=== PATIENT | female | born 1985 | race Two or more races ===

== ENCOUNTER 2025-02-12 11:58 | Emergency (ER) | payer MEDICAID, OTHER ==
[~2025-02-12] VITALS: Ht 167.6 cm; Wt 123.0 kg
--- NOTE | 2025-02-12 12:19 | ED.PDOC ---
GI ASSESSMENT HPI Comments This is a 39 year old female presenting to the ED with chief complaint of abdominal pain. Patient reports that she has been experiencing right suprapubic abdominal pain with associated chills and nausea worsening over the past 2 weeks. Patient notes her LMP was 3 months ago, but her menses is usually irregular. Patient denies any vomiting, diarrhea, chest pain, dysuria, hematuria, flank pain, or headache. Chief Complaint: Abdominal Pain Time Seen by MD: 12:16 Primary Care Provider: BUBBA Moon Notes: Nurses Notes, Medications, Allergies Allergies: Coded Allergies: NO KNOWN ALLERGIES (Unverified , 10/06/15) Home Meds Active Scripts Omeprazole (Gnp Omeprazole) 20 Mg Tab, 1 TAB PO BID for 15 Days, #30 TAB 1 Refill Prov:WESLEY GARY MD 02/12/25 Metoclopramide Hcl (Reglan) 10 Mg Tab, 10 MG PO BID for 10 Days, #20 TAB Prov:WESLEY GARY MD 02/12/25 Information Source: Patient Mode of Arrival: Ambulatory Timing: Days Duration: Since onset Prehospital treatment: None Quality: Sharp Vomitus: None Stool: Normal Severity: Moderate Recent: None Recent Hx of: None Pain Location: Suprapubic Modifying Factors: Nothing Associated sign and symptoms: Nausea, Abdominal Pain Past Medical History PAST MEDICAL HISTORY: Denies Surgical History: Denies all surgeries STAMP MAKER History: No Pertinent STAMP MAKER History Family History Family History: Reviewed,noncontributory to illness Social History Smoker: Non-Smoker Alcohol: Denies ETOH Use Drugs: Denies Drug Use Lives In: Home Constitutional: reports: chills; denies: diaphoresis, fatigue, fever, malaise, sweats, weakness, others EENTM: denies: blurred vision, double vision, ear bleeding, ear discharge, ear drainage, ear pain, ear ringing, eye pain, eye redness, hearing loss, mouth pain, mouth swelling, nasal discharge, nose bleeding, nose congestion, nose pain, photophobia, tearing, throat pain, throat swelling, voice changes, others Respiratory: denies: cough, hemoptysis, orthopnea, SOB at rest, shortness of breath, SOB with excertion, stridor, wheezing, others Cardiovascular: denies: chest pain, dizzy spells, diaphoresis, Dyspnea on exertion, edema, irregular heart beat, left arm pain, lightheadedness, palpitations, PND, syncope, others Gastrointestinal: reports: abdominal pain, nausea; denies: abdomen distended, blood streaked bowels, constipated, diarrhea, dysphagia, difficulty swallowing, hematemesis, melena, poor appetite, poor fluid intake, rectal bleeding, rectal pain, vomiting, others Genitourinary: denies: abnormal vagina bleeding, burning, dyspareunia, dysuria, flank pain, frequency, hematuria, incontinence, pain, , vagina discharge, urgency, others Neurological: denies: dizziness, fainting, headache, left sided numbness, left sided weakness, numbness, paresthesia, pre-existing deficit, right sided numbness, right sided weakness, seizure, speech problems, tingling, tremors, weakness, others Musculoskeletal: denies: back pain, gout, joint pain, joint swelling, muscle pain, muscle stiffness, neck pain, others Integumetry: denies: bruises, change in color, change in hair/nails, dryness, laceration, lesions, lumps, rash, wounds, others Allergic/Immunocompromised: denies: Difficulty Healing, Frequent Infections, Hives, Itching, others Hematologic/Lymphatic: denies: anemia, blood clots, easy bleeding, easy bruising, swollen glands, others Endocrine: denies: excessive hunger, excessive sweating, excessive thirst, excessive urination, flushing, intolerance to cold, intolerance to heat, unexplained weight gain, unexplained weight loss, others Psychiatric: denies: anxiety, bipolar disorder, depression, hopeless, panic disorder, schizophrenia, sleepless, suicidal, others All Other Systems: Reviewed and Negative Physical Exam General Appearance: Moderate Distress, Obese HEENT: Normal ENT Inspection, PERRL/EOMI Neck: Full Range of Motion, Non-Tender, Normal, Normal Inspection Respiratory: Chest Non-Tender, Lungs Clear, No Accessory Muscle Use, No Respiratory Distress, Normal Breath Sounds Cardiovascular: No Edema, No JVD, No Murmur, No Gallop, Normal Peripheral Pulses, Regular Rate/Rhythm Breast Exam: Deferred Gastrointestinal: Diffuse, LLQ, No Organomegaly, No Pulsatile Mass, Normal Bowel Sounds, RLQ, Soft, Suprapubic, Tenderness Genitalia: Deferred Pelvic: Deferred Rectal: Deferred Extremities: No calf tenderness, Normal capillary refill, Normal inspection, Normal range of motion, Non-tender, No pedal edema Neurologic: Alert, supervisor particleboard II-XII nml as Tested, No Motor Deficits, Normal Affect, Normal Mood, No Sensory Deficits Cerebellar Function: Normal Reflexes: Normal Skin: Dry, Normal Color, Warm Peripheral Pulses: 1+ carotid (R), 1+ carotid (L) Lymphatic: No Adenopathy Was a procedure done? Was a procedure done?: No GI differential Dx Differential Diagnosis: Appendicitis, Cholecystitis, Constipation, Diverticular disease, Ectopic , Gastritis/PUD, Gastroenteritis, Hernia, Inflammatory BD, Pancreatitis, UTI, Dehydration, Diabetes/ DKA, Drug toxicity, Electrolyte Imbalance, Food Poisoning, Hypovolemia, Renal Failure, Anemia, Kidney Stone X-Ray, Labs, Meds, VS Vital Signs Date Time Temp Pulse Resp B/P (MAP) Pulse Ox O2 Delivery O2 Flow Rate FiO2 02/12/25 17:46 98.2 96 12 132/78 (96) 97 98.2 02/12/25 14:52 88 16 128/73 02/12/25 14:42 97.9 88 12 128/73 (91) 96 97.9 02/12/25 13:56 81 16 161/100 02/12/25 11:59 97.8 89 15 161/100 98 97.8 Lab Test 02/12/25 12:33 02/12/25 12:13 Range/Units White Blood Count 8.4 4.4-10.8 10^3/uL Red Blood Count 4.81 4.0-5.20 10^6/uL Hemoglobin 13.8 12.2-16.2 g/dL Hematocrit 41.4 36.0-46.0 % Mean Corpuscular Volume 86.2 80.0-100.0 fL Mean Corpuscular Hemoglobin 28.7 28.0-32.0 pg Mean Corpuscular Hemoglobin Concent 33.3 32.0-36.0 g/dL Red Cell Distribution Width 12.7 11.8-14.3 % Platelet Count 318 140-450 10^3/uL Mean Platelet Volume 7.5 6.9-10.8 fL Neutrophils (%) (Auto) 63.8 37.0-80.0 % Lymphocytes (%) (Auto) 27.6 10.0-50.0 % Monocytes (%) (Auto) 5.9 0.0-12.0 % Eosinophils (%) (Auto) 2.3 0.0-7.0 % Basophils (%) (Auto) 0.4 0.0-2.0 % Neutrophils # (Auto) 5.3 1.6-8.6 10 ^3/uL Lymphocytes # (Auto) 2.3 0.4-5.4 10 ^3/uL Monocytes # (Auto) 0.5 0-1.3 10 ^3/uL Eosinophils # (Auto) 0.2 0-0.8 10 ^3/uL Basophils # (Auto) 0 0-0.2 10 ^3/uL Nucleated Red Blood Cells 0.0 % Sodium Level 139 136-145 mmol/L Potassium Level 3.9 3.5-5.1 mmol/L Chloride Level 103 98-107 mmol/L Carbon Dioxide Level 27 20-31 mmol/L Anion Gap 9 5-15 Blood Urea Nitrogen 11 9-23 mg/dL Creatinine 0.68 0.550-1.02 mg/dL Glomerular Filtration Rate Calc 115 >90 mL/min BUN/Creatinine Ratio 16.2 10.0-20.0 Serum Glucose 126 H 74-106 mg/dL Calcium Level 9.5 8.7-10.4 mg/dL Magnesium Level 1.8 1.6-2.6 mg/dL Total Bilirubin 0.2 0.2-1.0 mg/dL Aspartate Amino Transferase (AST) 19 13-40 U/L Alanine Aminotransferase (ALT) 41 H 7-40 U/L Alkaline Phosphatase 83 46-116 U/L Total Protein 7.2 5.7-8.2 g/dL Albumin 4.4 3.2-4.8 g/dL Lipase 41 12-53 U/L Beta HCG, Quantitative 0.1 L 1.5-4.2 mIU/mL Urine Color Light-yellow Yellow Urine Clarity Clear Clear Urine pH 6.0 5.0-9.0 Urine Specific [place] 1.003 1.001-1.035 Urine Protein Negative Negative Urine Ketones Negative Negative Urine Blood Negative Negative /uL Urine Nitrite Negative Negative Urine Bilirubin Negative Negative Urine Urobilinogen Normal Negative mg/dL Urine Leukocyte Esterase Negative Negative /uL Urine RBC None seen 0 - 4 /hpf Urine Microscopic WBC 0-5 /HPF Urine Squamous Epithelial Cells Few <5 /hpf Urine Bacteria Few H None Seen /hpf Urine Glucose Normal Normal mg/dL Current Medications Medications (Trade) Dose Ordered Sig/Nadir Route Start Time Stop Time Status Last Admin Metoclopramide HCl (Reglan Injection) 10 mg ONCE ONCE IV 02/12/25 12:15 02/12/25 12:17 DC 02/12/25 13:56 Hydromorphone HCl (Dilaudid Injection) 0.5 mg ONCE ONCE IV 02/12/25 12:15 02/12/25 12:17 DC 02/12/25 13:56 Sodium Chloride 500 ml @ 500 mls/hr Q1H ONCE IVB 02/12/25 12:15 02/12/25 13:14 DC 02/12/25 13:52 [place] [id number] Ph: [phone] DIAGNOSTIC IMAGING Diagnostic Imaging Report : [id number] Signed PATIENT: DANA ZIMMERMAN ACCT: [id number] UNIT: [id number] : 1985 LOC: ER ROOM / BED: / AGE / SEX: 39 / F ADM STATUS: REG ER SERVICE 1214 ORDERING PHYSICIAN: WESLEY GARY MD PROCEDURE(s): ABPLIV - CT AB PEL WITH IV CON ONLY REASON: Right lower quadrant abdominal pain ORDER NUMBER(s): [id number], ACCESSION NUMBER(s): [id number] CLINICAL HISTORY: Right lower quadrant abdominal pain TECHNIQUE: CT of the abdomen and pelvis was performed with IV contrast. This exam was performed according to our departmental dose optimization program. Up-to-date CT equipment and radiation dose reduction techniques are utilized as appropriate. CTDI 26 DLP 1541 COMPARISON: None FINDINGS: Abdomen/Pelvis: The kidneys, pancreas, adrenal glands, uterus, bladder, gallbladder, and spleen are unremarkable. These is diffuse hepatic steatosis. The abdominal aorta is normal in course and caliber. There are no significant atherosclerotic calcifications. There is no free intraperitoneal air or fluid. There is no enlarged abdominal or pelvic lymph node. There is no bowel wall thickening or dilatation. The appendix is normal. Other: The imaged lower thorax is unremarkable. No acute osseous abnormality is evident. IMPRESSION: No acute abnormality. Fatty liver. ATED BY: GERALDINE COLÓN MD DICTATED DATE/TIME: 02/12/251427 SIGNED BY: GERALDINE COLÓN MD SIGNED DATE/TIME: 02/12/251427 CC: X-Ray, Labs, Meds, VS Comment Course in the emergency department eventful patient came in with abdominal pain in the right side with nausea frequent urination for the past two weeks on and off blood pressure 161/100 CBC is normal Urine is negative negative CMP negative Lipase 41 CT abdomen and pelvis normal Patient will be discharged home workup is negative Upon further discussion the patient actually have radiculopathy right back to the right leg Images Reviewed?: Images reviewed and evaluated by me Time of 1ST Reevaluation: 13:15 Reevaluation 1ST: Unchanged Time of 2ND Reevaluation: 18:03 Reevaluation 2ND: Unchanged Consultation: PCP, GI Patient Education/Counseling: Diagnosis, Treatment, Prognosis, Need For Follow Up Family Education/Counseling: Diagnosis, Treatment, Prognosis, Need For Follow Up, No Family Present SEPSIS Sepsis Screen Date sepsis recognized/suspect: Feb 12, 2025 Time Sepsis recognized/suspect: 1202 Recent Procedure: No On Antibiotic Therapy: No Respiratory Rate >20: No Heart Rate >90: No Temp<36 C (96.8 F) or >38.3 C: No SBP <90 or MAP <65 mmHG: No New Acute Mental Status Change: No Is the patient on CPAP, BIPAP,: No Physician Orders Ct Ab Pel With Iv Con Only (02/12/25 12:14) Heplock Iv (02/12/25 12:14) Blood Pressure (02/12/25 12:14) Sodium Chloride 0.9% (02/12/25 12:15) Ketorolac Injection (Toradol Injection) (02/12/25 18:30) Vital Signs Date Time Temp Pulse Resp B/P (MAP) Pulse Ox O2 Delivery O2 Flow Rate FiO2 02/12/25 17:46 98.2 96 12 132/78 (96) 97 98.2 02/12/25 14:52 88 16 128/73 02/12/25 14:42 97.9 88 12 128/73 (91) 96 97.9 02/12/25 13:56 81 16 161/100 02/12/25 11:59 97.8 89 15 161/100 98 97.8 Laboratory Tests Test 02/12/25 12:33 White Blood Count 8.4 10^3/uL (4.4-10.8) Medications Medications Dose Ordered Sig/Nadir Route Start Time Stop Time Status Last Admin Dose Admin Hydromorphone HCl 0.5 mg ONCE ONCE IV 02/12/25 12:15 02/12/25 12:17 DC 02/12/25 13:56 Metoclopramide HCl 10 mg ONCE ONCE IV 02/12/25 12:15 02/12/25 12:17 DC 02/12/25 13:56 Sodium Chloride 500 ml @ 500 mls/hr Q1H ONCE IVB 02/12/25 12:15 02/12/25 13:14 DC 02/12/25 13:52 Departure 1 Departure Time of Disposition: 18:04 Impression: Primary Impression: Right sided abdominal pain Additional Impressions: Fatty liver Controlled diabetes mellitus Hypertension 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 Ruled Out: Appendicitis, Cholecystitis, Acute pancreatitis, Disposition: HOME / SELF CARE / HOMELESS Condition: Fair Additional Instructions: Clear to full liquid diet for the next two days and follow up with your PCP or [employer] supervisor e-Prescriptions Diclofenac Potassium (Diclofenac Potassium) 50 Mg Tab 1 TAB PO TIDP for 10 Days, #30 TAB Prov: WESLEY GARY MD 02/12/25 Cyclobenzaprine Hcl (Cyclobenzaprine Hcl) 10 Mg Tab 10 MG PO TID for 10 Days, #30 TAB Prov: WESLEY GARY MD 02/12/25 Omeprazole (Gnp Omeprazole) 20 Mg Tab 1 TAB PO BID for 15 Days, #30 TAB 1 Refill Prov: WESLEY GARY MD 02/12/25 Metoclopramide Hcl (Reglan) 10 Mg Tab 10 MG PO BID for 10 Days, #20 TAB Prov: WESLEY GARY MD 02/12/25 Discharged With: Self Critical Care Note Critical Care Time?: No Stability Stability form required: No Heart Score Heart Score: Heart Score Response (Comments) Value History N/A 0 EKG N/A 0 Age <45 0 Risk Factors 1 or 2 risk factors 1 Troponin N/A 0 Total 1 I personally scribed for WESLEY GARY MD ([email or web address]) on 02/12/25 at 12:19. Electronically submitted by Pete Christy ([email or web address]). I personally scribed for WESLEY GARY MD ([email or web address]) on 02/12/25 at 15:02. Electronically submitted by Pete Christy ([email or web address]). WESLEY GARY MD Feb 12, 2025 12:19
[2025-02-12 12:45] LABS: Hematocrit 41.4 % (36.0-46.0); Hemoglobin 13.8 g/dL (12.2-16.2); Mean Corpuscular Hemoglobin 28.7 pg (28.0-32.0); Mean Corpuscular Volume 86.2 fL (80.0-100.0); Nucleated Red Blood Cells % 0.0 %
[2025-02-12 12:52] LABS: Urine Protein, UAD Negative (Negative)
[2025-02-12 12:58] LABS: Albumin 4.4 g/dL (3.2-4.8); Alkaline Phosphatase 83 U/L (46-116); Anion Gap 9 (5-15); BUN/Creatinine Ratio 16.2 (10.0-20.0); Blood Urea Nitrogen 11 mg/dL (9-23); Calcium 9.5 mg/dL (8.7-10.4); Carbon Dioxide 27 mmol/L (20-31); Chloride 103 mmol/L (98-107); Magnesium 1.8 mg/dL (1.6-2.6); Potassium 3.9 mmol/L (3.5-5.1); Sodium 139 mmol/L (136-145); Total Protein 7.2 g/dL (5.7-8.2)
[2025-02-12 13:02] LABS: Alanine Aminotransferase 41 U/L (7-40); Bilirubin, Total 0.2 mg/dL (0.2-1.0); Glucose 126 mg/dL (74-106)
[2025-02-12 13:14] LABS: Lipase 41 U/L (12-53)
[2025-02-12] MEDS: SODIUM CHLORIDE 0.9% 1,000 ML IV ONE (13:45)
[2025-02-12] MEDS: IOHEXOL 300 MG/ML 100ML BOTTLE IJ ONE (13:45)
[2025-02-12] MEDS: SODIUM CHLORIDE 0.9% 500 ML IVB ONE (13:52)
[2025-02-12] MEDS: METOCLOPRAMIDE HCL 5MG/ml INJ 2ml VIAL IV ONE (13:56)
[2025-02-12] MEDS: HYDROmorphone HCL 2 MG/ML VL/or syr IV ONE (13:56)
--- NOTE | 2025-02-12 14:31 | DVH ---
CLINICAL HISTORY: Right lower quadrant abdominal pain TECHNIQUE: CT of the abdomen and pelvis was performed with IV contrast. This exam was performed accor ding to our departmental dose optimization program. Up-to-date CT equipment and radiation dose reduct ion techniques are utilized as appropriate. CTDI 26 DLP 1541 COMPARISON: None FINDINGS: Abdomen/Pelvis: The kidneys, pancreas, adrenal glands, uterus, bladder, gallbladder, and spleen are unremarkable. The se is diffuse hepatic steatosis. The abdominal aorta is normal in course and caliber. There are no significant atherosclerotic calcifi cations. There is no free intraperitoneal air or fluid. There is no enlarged abdominal or pelvic lymph node. There is no bowel wall thickening or dilatation. The appendix is normal. Other: The imaged lower thorax is unremarkable. No acute osseous abnormality is evident. IMPRESSION: No acute abnormality. Fatty liver.
[2025-02-12 17:46] VITALS: BP 132/78; PULSE 96; RESP 12; TEMP 98.2; O2SAT 97
[2025-02-12] MEDS ORDERED: OMEP20TA PO (18:07)
[2025-02-12] MEDS ORDERED: METO-281 PO (18:07)
[2025-02-12] MEDS ORDERED: CYCL-839 PO (18:23)
[2025-02-12] MEDS ORDERED: DICL50TA2 PO (18:23)
[2025-02-12] MEDS: KETOROLAC TROMETH 30 MG/ML 1ML VIAL IV ONE (18:25)
== END 2025-02-12 18:39 | disposition home or self-care (01) ==
LOC: ER 11:58
DX: K76.0 Fatty (change of) liver, not elsewhere classified (principal); E11.9 Type 2 diabetes mellitus without complications; I10 Essential (primary) hypertension; M51.16 Intervertebral disc disorders with radiculopathy, lumbar region; Z79.899 Other long term (current) drug therapy
CPT/HCPCS: 36415; 74177; 80053; 81001; 83690; 83735; 84702; 85025; 96361; 96374; 96375; 99285; J1171; J1885; J2765; J7040; Q9967